=== PATIENT | female | born 1950 | race Caucasian/White ===

== ENCOUNTER → 2018-01-17 12:11 | Outpatient (CLI) | payer OTHER, SELFPAY ==
--- NOTE | 2018-01-17 | DI.MG.S_ITS ---
BILATERAL DIGITAL SCREENING MAMMOGRAM 3D/2D WITH CAD: 01/17/2018 CLINICAL: Routine screening. Family history of breast cancer. Comparison is made to exams dated: 12/23/2016 mammogram, 04/19/2014 mammogram, and 04/16/2013 mammogram - [facility]. The tissue of both breasts is predominantly fatty. Current study was also evaluated with a Computer Aided Detection (CAD) system. No significant masses, calcifications, or other findings are seen in either breast. There has been no significant interval change. IMPRESSION: NEGATIVE There is no mammographic evidence of malignancy. A 1 year screening mammogram is recommended. This exam was interpreted at Station ID: [id number]. NOTE: For mammograms, a report in lay terms will be sent to the patient. Approximately 15% of breast malignancies will not be visualized mammographically. In the management of a palpable breast mass, a negative mammogram must not discourage biopsy of a clinically suspicious lesion. Electronically Signed By: Rodrigo bettencourt/tim:01/17/2018 17:27:10 letter sent: Normal Exam ACR BI-RADS Category 1: Negative 3341F
== END ==
PROVIDERS: Family Provider Physician Assistant; PCP Physician Assistant; Visit Provider Physician Assistant
DX: Z12.31 Encounter for screening mammogram for malignant neoplasm of breast (principal); Z80.3 Family history of malignant neoplasm of breast
CPT/HCPCS: 77063; 77067

== ENCOUNTER → 2018-05-29 10:53 | Outpatient (CLI) | payer OTHER, SELFPAY ==
[2018-05-29 12:30] LABS: Hemoglobin A1C% w Est Avg Glu 6.8 % (4.0-6.0)
[2018-05-29 12:43] LABS: BUN Creatinine Ratio 28.6 (6-22); Blood Urea Nitrogen 20 mg/dL (7-17); Calcium 9.4 mg/dL (8.4-10.2); Carbon Dioxide 27 mmol/L (22-32); Chloride 103 mmol/L (98-107); Estimated Glomerular Filt Rate > 60.0 mL/min (>60); Glucose 156 mg/dL (80-110); HEMOLYSIS < 15 (0-50); Potassium 4.1 mmol/L (3.4-5.1); Sodium 144 mmol/L (137-145)
== END ==
PROVIDERS: PCP Physician Assistant; Visit Provider Physician Assistant
DX: E11.9 Type 2 diabetes mellitus without complications (principal); I10 Essential (primary) hypertension
CPT/HCPCS: 36415; 80048; 83036

== ENCOUNTER → 2018-12-06 11:43 | Outpatient (CLI) | payer OTHER, SELFPAY ==
[2018-12-06 12:48] LABS: Hemoglobin A1C% w Est Avg Glu 6.5 % (4.0-6.0)
[2018-12-06 12:54] LABS: Alanine Aminotransferase 41 IU/L (9-52); Albumin 4.1 g/dL (3.5-5.0); Albumin Globulin Ratio 1.3 (1.0-2.8); Alkaline Phosphatase 77 U/L (38-126); Aspartate Aminotransferase 32 IU/L (14-36); BUN Creatinine Ratio 28.3 (6-22); Bilirubin Total 0.6 mg/dL (0.2-1.3); Blood Urea Nitrogen 17 mg/dL (7-17); Calcium 9.2 mg/dL (8.4-10.2); Carbon Dioxide 26 mmol/L (22-32); Chloride 103 mmol/L (98-107); Cholesterol 184 mg/dL (140-199); Estimated Glomerular Filt Rate > 60.0 mL/min (>60); Globulin 3.2 g/dL (1.7-4.1); Glucose 146 mg/dL (80-110); HDL Cholesterol 44 mg/dL (40-60); HEMOLYSIS < 15 (0-50); LDL Cholesterol Calculated 96 mg/dL (<100); Potassium 4.4 mmol/L (3.4-5.1); Sodium 141 mmol/L (137-145); Total Protein 7.3 g/dL (6.3-8.2); Triglycerides 222 mg/dL (35-150)
== END ==
PROVIDERS: Family Provider Physician Assistant; PCP Physician Assistant; Visit Provider Physician Assistant
DX: E11.9 Type 2 diabetes mellitus without complications (principal); E78.2 Mixed hyperlipidemia; I10 Essential (primary) hypertension
CPT/HCPCS: 36415; 80053; 80061; 83036

== ENCOUNTER → 2019-01-19 11:07 | Outpatient (CLI) | payer OTHER, SELFPAY ==
--- NOTE | 2019-01-19 11:09 | DI.MG.S_ITS ---
BILATERAL DIGITAL SCREENING MAMMOGRAM 3D/2D WITH CAD: 01/19/2019 CLINICAL: Routine screening. Family history of breast cancer. Comparison is made to exams dated: 01/17/2018 mammogram, 12/23/2016 mammogram, and 04/19/2014 mammogram - [facility]. There are scattered fibroglandular elements in both breasts. Current study was also evaluated with a Computer Aided Detection (CAD) system. There are benign calcifications in both breasts. No significant masses, calcifications, or other findings are seen in either breast. There has been no significant interval change. IMPRESSION: There is no mammographic evidence of malignancy. A 1 year screening mammogram is recommended. This exam was interpreted at Station ID: [id number]. NOTE: For mammograms, a report in lay terms will be sent to the patient. Approximately 15% of breast malignancies will not be visualized mammographically. In the management of a palpable breast mass, a negative mammogram must not discourage biopsy of a clinically suspicious lesion. Electronically Signed By: Parvez alexandra/tim:01/19/2019 12:24:14 letter sent: Normal Exam ACR BI-RADS Category 2: Benign Finding(s) 3342F
== END ==
PROVIDERS: PCP Physician Assistant; Visit Provider Physician Assistant
DX: Z12.31 Encounter for screening mammogram for malignant neoplasm of breast (principal); Z80.3 Family history of malignant neoplasm of breast
CPT/HCPCS: 77063; 77067

== ENCOUNTER → 2019-07-09 09:24 | Outpatient (CLI) | payer MEDICARE, SELFPAY ==
[2019-07-09 10:20] LABS: Alanine Aminotransferase 48 IU/L (<35); Albumin 4.4 g/dL (3.5-5.0); Albumin Globulin Ratio 1.2 (1.0-2.8); Alkaline Phosphatase 83 U/L (38-126); Aspartate Aminotransferase 40 IU/L (14-36); BUN Creatinine Ratio 33.3 (6-22); Bilirubin Total 0.6 mg/dL (0.2-1.3); Blood Urea Nitrogen 20 mg/dL (7-17); Calcium 9.5 mg/dL (8.4-10.2); Carbon Dioxide 28 mmol/L (22-32); Chloride 103 mmol/L (98-107); Cholesterol 198 mg/dL (140-199); Estimated Glomerular Filt Rate > 60.0 mL/min (>60); Globulin 3.7 g/dL (1.7-4.1); Glucose 216 mg/dL (80-110); HDL Cholesterol 41 mg/dL (40-60); HEMOLYSIS < 15 (0-50); LDL Cholesterol Calculated 128 mg/dL (<100); Potassium 4.7 mmol/L (3.4-5.1); Sodium 140 mmol/L (137-145); Total Protein 8.1 g/dL (6.3-8.2); Triglycerides 144 mg/dL (35-150)
[2019-07-09 10:59] LABS: Creatinine Urine Random 144.8 mg/dL
[2019-07-09 11:03] LABS: Microalbumi Creatinin Ratio Ur 13.1 ug/mg CR (<30); Microalbumin Urine Random 1.9 mg/dL (0-1.6)
[2019-07-09 11:05] LABS: Vitamin B12 187 pg/mL (239-931)
[2019-07-09 11:11] LABS: Hemoglobin A1C% w Est Avg Glu 6.8 % (4.0-6.0)
[2019-07-09 11:15] LABS: Vitamin D 25 Hydroxy (D3) 28.1 ng/mL (30.0-100.0)
== END ==
PROVIDERS: PCP Physician Assistant; Visit Provider Physician Assistant
DX: E11.9 Type 2 diabetes mellitus without complications (principal); E66.01 Morbid (severe) obesity due to excess calories; E78.2 Mixed hyperlipidemia; I10 Essential (primary) hypertension; M81.0 Age-related osteoporosis without current pathological fracture; R26.81 Unsteadiness on feet; R53.83 Other fatigue
CPT/HCPCS: 36415; 80053; 80061; 82043; 82306; 82570; 82607; 83036

== ENCOUNTER → 2020-02-07 09:16 | Outpatient (CLI) | payer MEDICARE, SELFPAY ==
[2020-02-07 10:05] LABS: Hemoglobin A1C% w Est Avg Glu 7.6 % (4.0-6.0)
[2020-02-07 10:28] LABS: Alanine Aminotransferase 50 IU/L (<35); Albumin 4.2 g/dL (3.5-5.0); Albumin Globulin Ratio 1.2 (1.0-2.8); Alkaline Phosphatase 77 U/L (38-126); Aspartate Aminotransferase 45 IU/L (14-36); BUN Creatinine Ratio 18.7 (6-22); Bilirubin Total 0.8 mg/dL (0.2-1.3); Blood Urea Nitrogen 14 mg/dL (7-17); Calcium 9.4 mg/dL (8.4-10.2); Carbon Dioxide 25 mmol/L (22-32); Chloride 100 mmol/L (98-107); Cholesterol 186 mg/dL (140-199); Estimated Glomerular Filt Rate > 60.0 mL/min (>60); Globulin 3.4 g/dL (1.7-4.1); Glucose 183 mg/dL (80-110); HDL Cholesterol 46 mg/dL (40-60); HEMOLYSIS < 15 (0-50); LDL Cholesterol Calculated 104 mg/dL (<100); Potassium 4.5 mmol/L (3.4-5.1); Sodium 137 mmol/L (137-145); Total Protein 7.6 g/dL (6.3-8.2); Triglycerides 180 mg/dL (35-150)
[2020-02-07 10:45] LABS: Free T3, Triiodothyronine Free 3.23 pg/mL (2.77-5.27); Free T4, Direct Thyroxine 1.24 ng/dL (0.78-2.19)
[2020-02-07 10:59] LABS: Thyroid Stimulating Hormone 2.81 uIU/mL (0.47-4.68)
[2020-02-07 11:45] LABS: Microalbumin Urine Random 3.1 mg/dL (0-1.6)
[2020-02-07 11:47] LABS: Microalbumi Creatinin Ratio Ur 19.6 ug/mg CR (<30)
== END ==
PROVIDERS: PCP Nurse Practitioner; Referring Provider Nurse Practitioner; Visit Provider Nurse Practitioner
DX: E11.9 Type 2 diabetes mellitus without complications (principal); E78.2 Mixed hyperlipidemia; I10 Essential (primary) hypertension
CPT/HCPCS: 36415; 80053; 80061; 82043; 82570; 83036; 84439; 84443; 84481

== ENCOUNTER → 2020-02-19 16:22 | Outpatient (CLI) | payer MEDICARE, SELFPAY ==
--- NOTE | 2020-02-19 16:29 | DI.MG.S_ITS ---
Patient Name: DAYAN SOLO date: 1950 Sex: F Attending Physician: Memo Indications: Date: 02/19/2020 16:26 At the request of: ELISE ENG Procedure: MM screening mammo BI BILATERAL DIGITAL SCREENING MAMMOGRAM 3D/2D WITH CAD: 02/19/2020 CLINICAL: Routine screening. Family history of breast cancer. Comparison is made to exams dated: 01/19/2019 mammogram, 01/17/2018 mammogram, and 12/23/2016 mammogram - [facility]. The tissue of both breasts is predominantly fatty. Current study was also evaluated with a Computer Aided Detection (CAD) system. There are benign calcifications in both breasts. No significant masses, calcifications, or other findings are seen in either breast. There has been no significant interval change. IMPRESSION: BENIGN There is no mammographic evidence of malignancy. A 1 year screening mammogram is recommended. This exam was interpreted at Station ID: [id number]. NOTE: For mammograms, a report in lay terms will be sent to the patient. Approximately 15% of breast malignancies will not be visualized mammographically. In the management of a palpable breast mass, a negative mammogram must not discourage biopsy of a clinically suspicious lesion. Electronically Signed By: Gina house/tim:02/19/2020 16:40:39 letter sent: Normal Exam ACR BI-RADS Category 2: Benign Finding(s) 3342F
== END ==
PROVIDERS: PCP Nurse Practitioner; Referring Provider Nurse Practitioner; Visit Provider Nurse Practitioner
DX: Z12.31 Encounter for screening mammogram for malignant neoplasm of breast (principal); Z80.3 Family history of malignant neoplasm of breast
CPT/HCPCS: 77063; 77067

== ENCOUNTER → 2021-01-14 07:49 | Outpatient (CLI) | payer OTHER, SELFPAY ==
--- NOTE | 2021-01-14 07:50 | DI.US.S_ITS ---
PROCEDURE: US ABDOMEN COMPLETE INDICATIONS: PAIN TECHNIQUE: Real-time scanning was performed of the abdominal and retroperitoneal organs, with image documentation. COMPARISON: [facility], US, ABDOMEN LIMITED, 05/25/2016, 10:29. FINDINGS: Liver: Liver is normal in size, and is of diffusely increased echogenicity consistent with fatty change. Gallbladder: Unremarkable Biliary ducts: Intrahepatic bile ducts are non-dilated. Extrahepatic bile duct caliber measures 5.4 mm. Normal is 6-7 mm or less in diameter, or 10 mm or less post-cholecystectomy. Pancreas: Visualized portions of the pancreas are sonographically normal. Spleen: Spleen is normal in size and homogeneous in echotexture. Kidneys: Kidneys are normal in size and echotexture. Right kidney measures 9 10.3 cm long; left kidney measures 10.4 cm long. No hydronephrosis. There is a 5 mm nonobstructing inferior right renal stone. No solid masses. Aorta: Visualized aorta is normal in caliber at less than 3 cm. Iliacs: Proximal common iliac arteries are not visualized secondary to overlying bowel gas. IVC: Intrahepatic inferior vena cava is patent. Miscellaneous: No free abdominal fluid. IMPRESSION: 1. Diffuse hepatic steatosis. 2. No evidence of gallstone disease. 3. Nonobstructing right renal stone. Dictated by: Pablo Clark M.D. on 01/14/2021 at 11:31 Approved by: Pablo Clark M.D. on 01/14/2021 at 11:33
[2021-01-14 10:01] LABS: Hemoglobin A1C% w Est Avg Glu 7.5 % (4.0-6.0)
[2021-01-14 10:17] LABS: Alanine Aminotransferase 36 IU/L (<35); Albumin Globulin Ratio 1.3 (1.0-2.8); Alkaline Phosphatase 57 U/L (38-126); Aspartate Aminotransferase 32 IU/L (14-36); BUN Creatinine Ratio 30.6 (6-22); Bilirubin Total 0.5 mg/dL (0.2-1.3); Blood Urea Nitrogen 22 mg/dL (7-17); Calcium 9.7 mg/dL (8.4-10.2); Carbon Dioxide 27 mmol/L (22-32); Chloride 103 mmol/L (98-107); Cholesterol 175 mg/dL (140-199); Estimated Glomerular Filt Rate > 60.0 mL/min (>60); Globulin 3.2 g/dL (1.7-4.1); Glucose 183 mg/dL (80-110); HDL Cholesterol 46 mg/dL (40-60); HEMOLYSIS < 15 (0-50); LDL Cholesterol Calculated 101 mg/dL (<100); Potassium 4.8 mmol/L (3.4-5.1); Sodium 139 mmol/L (137-145); Total Protein 7.2 g/dL (6.3-8.2); Triglycerides 139 mg/dL (35-150)
[2021-01-14 10:29] LABS: Free T3, Triiodothyronine Free 3.12 pg/mL (2.77-5.27)
[2021-01-14 10:42] LABS: Thyroid Stimulating Hormone 2.17 uIU/mL (0.47-4.68)
[2021-01-14 11:03] LABS: Vitamin B12 473 pg/mL (239-931)
[2021-01-14 11:04] LABS: Vitamin D 25 Hydroxy (D3) 73.9 ng/mL (30.0-100.0)
[2021-01-14 11:25] LABS: Creatinine Urine Random 145.3 mg/dL
[2021-01-14 11:30] LABS: Microalbumi Creatinin Ratio Ur 9.6 ug/mg CR (<30); Microalbumin Urine Random 1.4 mg/dL (0-1.6)
== END ==
PROVIDERS: PCP Nurse Practitioner; Referring Provider Nurse Practitioner; Visit Provider Nurse Practitioner
DX: R10.811 Right upper quadrant abdominal tenderness (principal); R10.812 Left upper quadrant abdominal tenderness; E11.9 Type 2 diabetes mellitus without complications; R14.0 Abdominal distension (gaseous); I10 Essential (primary) hypertension; E53.8 Deficiency of other specified B group vitamins; E55.9 Vitamin D deficiency, unspecified; Z12.11 Encounter for screening for malignant neoplasm of colon; F32.9 Major depressive disorder, single episode, unspecified; E78.2 Mixed hyperlipidemia; Z79.899 Other long term (current) drug therapy; K76.0 Fatty (change of) liver, not elsewhere classified; N20.0 Calculus of kidney
CPT/HCPCS: 36415; 76700; 80053; 80061; 81327; 82043; 82306; 82570; 82607; 83036; 84439; 84443; 84481

== ENCOUNTER → 2021-02-10 12:38 | Outpatient (CLI) | payer OTHER, SELFPAY ==
--- NOTE | 2021-02-10 12:40 | DI.US.S_ITS ---
PROCEDURE: US CAROTID DOPPLER BI INDICATIONS: CALCIFICATIONS ON DENTAL XRAY TECHNIQUE: Color and pulse Doppler interrogation was performed of both carotid systems, with image documentation and velocity measurements. COMPARISON: None. FINDINGS: Stenosis calculations are based on SRU (Society of Radiologists in Ultrasound) criteria. Right side: Brachial blood pressure: 133/76 mm Hg. Common carotid artery peak systolic velocity: 128 cm/sec. Internal carotid artery peak systolic velocity: 82 cm/sec. Internal carotid artery end diastolic velocity: 25 cm/sec. External carotid artery peak systolic velocity: 93 cm/sec. ICA/CCA peak systolic ratio: 0.6 Bennett scale imaging description: Mild mixed plaque formation at the bifurcation and origin of the ICA with no hemodynamically significant stenosis identified. Percent internal carotid artery stenosis: Less than 50 percent on the basis of grayscale and Doppler findings. Vertebral artery: Flow direction is antegrade. Left side: Common carotid artery peak systolic velocity: 107 cm/sec. Internal carotid artery peak systolic velocity: 83 cm/sec. Internal carotid artery end diastolic velocity: 30 cm/sec. External carotid artery peak systolic velocity: 90 cm/sec. ICA/CCA peak systolic ratio: 0.8 . Bennett scale imaging description: Mild mixed plaque formation at the bifurcation and origin of the ICA with no hemodynamically significant stenosis. Percent internal carotid artery stenosis: Less than 50 percent on the basis of grayscale and Doppler findings. Vertebral artery: Flow direction is antegrade. IMPRESSION: No hemodynamically significant stenosis of the carotid systems. Dictated by: Dexter Cuellar M.D. on 02/10/2021 at 16:46 Approved by: Dexter Cuellar M.D. on 02/10/2021 at 16:48
== END ==
PROVIDERS: PCP Nurse Practitioner; Referring Provider Nurse Practitioner; Visit Provider Nurse Practitioner
DX: I65.23 Occlusion and stenosis of bilateral carotid arteries (principal)
CPT/HCPCS: 93880

== ENCOUNTER → 2021-04-13 15:09 | Outpatient (CLI) | payer OTHER, SELFPAY | PROVIDERS: PCP Nurse Practitioner; Visit Provider Nurse Practitioner | DX: L02.215 Cutaneous abscess of perineum (principal) | CPT/HCPCS: 87070; 87205 ==

== ENCOUNTER → 2021-05-04 11:37 | Outpatient (CLI) | payer OTHER, SELFPAY ==
[2021-05-04 12:40] LABS: Hemoglobin A1C% w Est Avg Glu 5.7 % (4.0-6.0)
[2021-05-04 12:45] LABS: Alanine Aminotransferase 32 IU/L (<35); Albumin 4.4 g/dL (3.5-5.0); Albumin Globulin Ratio 1.4 (1.0-2.8); Alkaline Phosphatase 54 U/L (38-126); Aspartate Aminotransferase 37 IU/L (14-36); BUN Creatinine Ratio 26.9 (6-22); Bilirubin Total 0.7 mg/dL (0.2-1.3); Blood Urea Nitrogen 21 mg/dL (7-17); Calcium 9.5 mg/dL (8.4-10.2); Carbon Dioxide 26 mmol/L (22-32); Chloride 102 mmol/L (98-107); Cholesterol 195 mg/dL (140-199); Estimated Glomerular Filt Rate > 60.0 mL/min (>60); Globulin 3.2 g/dL (1.7-4.1); Glucose 139 mg/dL (80-110); HDL Cholesterol 44 mg/dL (40-60); HEMOLYSIS < 15 (0-50); LDL Cholesterol Calculated 123 mg/dL (<100); Potassium 4.7 mmol/L (3.4-5.1); Sodium 140 mmol/L (137-145); Total Protein 7.6 g/dL (6.3-8.2); Triglycerides 141 mg/dL (35-150)
== END ==
PROVIDERS: PCP Nurse Practitioner; Referring Provider Nurse Practitioner; Visit Provider Nurse Practitioner
DX: E11.9 Type 2 diabetes mellitus without complications (principal); E78.2 Mixed hyperlipidemia; I10 Essential (primary) hypertension; Z79.899 Other long term (current) drug therapy
CPT/HCPCS: 36415; 80053; 80061; 83036

== ENCOUNTER → 2021-05-06 07:39 | Outpatient (CLI) | payer OTHER, SELFPAY ==
--- NOTE | 2021-05-06 07:40 | DI.US.S_ITS ---
PROCEDURE: US EXTREMITY NONVASC LOWER LT INDICATIONS: PALPABLE LUMP MEDIAL LEFT BUTTOCK TECHNIQUE: Real-time scanning was performed of the palpable area in the left gluteal region , with image documentation. COMPARISON: None. FINDINGS: There is an irregular subdermal fluid collection with heterogeneous internal echoes measuring approximately 1.1 x 0.8 x 0.8 cm. The collection extends through the dermal layer, probably to the skin surface. Adjacent to this collection on the deep aspect, there is a prominent vessel. IMPRESSION: 1. Subdermal circumscribed complex fluid collection, likely a phlegmon or abscess. Dictated by: Leta Rincon M.D. on 05/06/2021 at 8:49 Approved by: Leta Rincon M.D. on 05/06/2021 at 8:53
== END ==
PROVIDERS: PCP Nurse Practitioner; Referring Provider Nurse Practitioner; Visit Provider Nurse Practitioner
DX: L02.215 Cutaneous abscess of perineum (principal)
CPT/HCPCS: 76882

== ENCOUNTER → 2021-08-17 13:50 | Outpatient (CLI) | payer OTHER, SELFPAY ==
[2021-08-17 15:21] LABS: Hemoglobin A1C% w Est Avg Glu 5.9 % (4.0-6.0)
[2021-08-17 15:40] LABS: Alanine Aminotransferase 27 IU/L (<35); Albumin 4.6 g/dL (3.5-5.0); Albumin Globulin Ratio 1.3 (1.0-2.8); Alkaline Phosphatase 61 U/L (38-126); Aspartate Aminotransferase 30 IU/L (14-36); BUN Creatinine Ratio 21.3 (6-22); Bilirubin Total 0.6 mg/dL (0.2-1.3); Blood Urea Nitrogen 16 mg/dL (7-17); Calcium 9.3 mg/dL (8.4-10.2); Carbon Dioxide 26 mmol/L (22-32); Chloride 105 mmol/L (98-107); Cholesterol 230 mg/dL (140-199); Estimated Glomerular Filt Rate > 60.0 mL/min (>60); Globulin 3.6 g/dL (1.7-4.1); Glucose 102 mg/dL (80-110); HDL Cholesterol 45 mg/dL (40-60); HEMOLYSIS < 15 (0-50); LDL Cholesterol Calculated 150 mg/dL (<100); Potassium 4.1 mmol/L (3.4-5.1); Sodium 140 mmol/L (137-145); Total Protein 8.2 g/dL (6.3-8.2); Triglycerides 173 mg/dL (35-150)
[2021-08-17 17:15] LABS: Hep C Virus Ab w/Reflex Quant NEGATIVE s/c (NEGATIVE)
== END ==
PROVIDERS: PCP Nurse Practitioner; Referring Provider Nurse Practitioner; Visit Provider Nurse Practitioner
DX: E11.9 Type 2 diabetes mellitus without complications (principal); I10 Essential (primary) hypertension; K76.0 Fatty (change of) liver, not elsewhere classified; Z11.59 Encounter for screening for other viral diseases; Z91.89 Other specified personal risk factors, not elsewhere classified; E11.69 Type 2 diabetes mellitus with other specified complication; E78.2 Mixed hyperlipidemia
CPT/HCPCS: 36415; 80053; 80061; 83036; 86803

== ENCOUNTER → 2021-08-27 13:01 | Outpatient (CLI) | payer OTHER, SELFPAY ==
--- NOTE | 2021-08-27 13:02 | DI.MG.S_ITS ---
BILATERAL DIGITAL SCREENING MAMMOGRAM 3D/2D WITH CAD: 08/27/2021 Comparison is made to exams dated: 02/19/2020 mammogram, 01/19/2019 mammogram, 01/17/2018 mammogram, and 12/23/2016 mammogram - [facility]. The tissue of both breasts is predominantly fatty. Current study was also evaluated with a Computer Aided Detection (CAD) system. There are benign calcifications in both breasts. No significant masses, calcifications, or other findings are seen in either breast. There has been no significant interval change. IMPRESSION: BENIGN There is no mammographic evidence of malignancy. A 1 year screening mammogram is recommended. This exam was interpreted at Station ID: [id number]. NOTE: For mammograms, a report in lay terms will be sent to the patient. Approximately 15% of breast malignancies will not be visualized mammographically. In the management of a palpable breast mass, a negative mammogram must not discourage biopsy of a clinically suspicious lesion. Electronically Signed By: Michael hernandez/tim:08/27/2021 14:02:50 letter sent: Normal Exam ACR BI-RADS Category 2: Benign Finding(s) 3342F
== END ==
PROVIDERS: PCP Nurse Practitioner; Referring Provider Nurse Practitioner; Visit Provider Nurse Practitioner
DX: Z12.31 Encounter for screening mammogram for malignant neoplasm of breast (principal)
CPT/HCPCS: 77063; 77067

== ENCOUNTER → 2021-11-18 07:40 | Outpatient (CLI) | payer OTHER, SELFPAY ==
[2021-11-18 08:28] LABS: Hemoglobin A1C% w Est Avg Glu 5.8 % (4.0-6.0)
[2021-11-18 08:43] LABS: Alanine Aminotransferase 21 IU/L (<35); Albumin 4.2 g/dL (3.5-5.0); Albumin Globulin Ratio 1.2 (1.0-2.8); Alkaline Phosphatase 63 U/L (38-126); Aspartate Aminotransferase 23 IU/L (14-36); BUN Creatinine Ratio 28.2 (6-22); Bilirubin Total 0.3 mg/dL (0.2-1.3); Blood Urea Nitrogen 22 mg/dL (7-17); Calcium 9.5 mg/dL (8.4-10.2); Carbon Dioxide 29 mmol/L (22-32); Chloride 104 mmol/L (98-107); Cholesterol 201 mg/dL (140-199); Estimated Glomerular Filt Rate > 60 mL/min (>60); Globulin 3.4 g/dL (1.7-4.1); Glucose 125 mg/dL (80-110); HDL Cholesterol 39 mg/dL (40-60); HEMOLYSIS < 15 (0-50); LDL Cholesterol Calculated 125 mg/dL (<100); Potassium 4.7 mmol/L (3.4-5.1); Sodium 140 mmol/L (137-145); Total Protein 7.6 g/dL (6.3-8.2); Triglycerides 183 mg/dL (35-150)
== END ==
PROVIDERS: PCP Nurse Practitioner; Referring Provider Nurse Practitioner; Visit Provider Nurse Practitioner
DX: E11.69 Type 2 diabetes mellitus with other specified complication (principal); E78.2 Mixed hyperlipidemia; I10 Essential (primary) hypertension
CPT/HCPCS: 36415; 80053; 80061; 83036

== ENCOUNTER 2022-02-09 04:10 | Emergency (ER) | payer OTHER, SELFPAY ==
[2022-02-09] VITALS (12 sets, daily range): BP systolic 133–165; BP diastolic 61–74; PULSE 51–71; RESP 14–28; O2SAT 92–96
--- NOTE | 2022-02-09 04:21 | ED_ITS ---
HPI - General Adult General Chief complaint: Chest Pain Stated complaint: chest pain Time Seen by Provider: 02/09/22 04:20 History of Present Illness HPI narrative: 71-year-old woman with history of diabetes, hypertension who was resting in bed this evening when she had the acute onset of burning epigastric, central chest pain radiating in a bandlike way around her upper abdomen to the right scapula and right shoulder. She tried some Gas-X and found that that was not helpful. She had an episode of vomiting with some mild diaphoresis immediately before the vomiting. She does not note that the vomiting alleviated any of the pain. She does have a history of a bleeding ulcer in describes this pain is significantly different. She does not describe shortness of breath but does describe the benefits in using deep limb oz type breathing techniques in controlling the overall pain. She states that heat and Tylenol have not been helpful in alleviating the pain. She has that recently she has been feeling significantly better. She was diagnosed with COVID approximately month ago and over the last week is finally back to her usual activity and energy levels. She still has a mild persistent cough. She describes no recent fevers, palpitations, headaches. She has not had abdominal pain diarrhea or constipation. Related Data Home Medications Medication Instructions Recorded Confirmed acetaminophen 500 mg tablet See Rx Instructions PO ONCE PRN 12/11/18 05/07/21 (Tylenol Extra Strength) Previous Rx's Medication Instructions Recorded One Touch Glucometer #1 ea 02/07/20 blood sugar diagnostic (OneTouch #100 ea 02/18/20 Verio test strips) dulaglutide 0.75 mg/0.5 mL 0.75 mg (0.5 mL) SUBCUT QWEEK #2 mL 05/06/21 [facility] felodipine 5 mg tablet,extended See Rx Instructions .Route 05/06/21 release 24 hr .COMPLEX #90 tabs lansoprazole 30 mg capsule,delayed See Rx Instructions .Route 05/06/21 release .COMPLEX #90 caps losartan 50 mg tablet See Rx Instructions .Route 05/06/21 .COMPLEX #180 tabs metformin 500 mg tablet,extended See Rx Instructions .Route 05/06/21 release 24 hr .COMPLEX #360 tabs sertraline 50 mg tablet 75 mg PO DAILY #135 tabs 06/22/21 omega 1-fxp-crw-fish oil 1,000 mg 1 cap PO BID #180 caps 08/19/21 (120 mg-180 mg) capsule (Fish Oil) pravastatin 20 mg tablet 20 mg .Route .COMPLEX #90 tabs 08/19/21 niacin 750 mg tablet,extended 750 mg PO BEDTIME #90 tabs 11/25/21 release 24 hr (Niaspan) nirmatrelvir 300 mg (150 mg x See Rx Instructions PO .COMPLEX 01/22/22 2)-ritonavir 100 mg tablet (EUA) #30 tabs Allergies Allergy/AdvReac Type Severity Reaction Status Date / Time perflutren [From DEFINITY] Allergy Severe Chest Verified 05/07/21 14:42 tightness, difficulty breathing. latex [LATEX] Allergy Mild RASH AND Verified 05/07/21 14:42 HIVES monosodium glutamate AdvReac Severe MIGRAINE Verified 05/07/21 14:42 [MONOSODIUM GLUTAMATE] lisinopril AdvReac Intermediate Hair loss Verified 05/07/21 14:42 Review of Systems Review of Systems Narrative: Remainder of complete review of systems is otherwise unremarkable except for that included in the HPI. Patient History Medical History (Updated 02/09/22 @ 06:46 by Divine Mello MD) Calcification of both carotid arteries Cobalamin deficiency Hepatic steatosis Mixed hyperlipidemia due to type 2 diabetes mellitus Other petroleum terminal plant operator (current) drug therapy Perineal abscess Surgical History Status post hernia repair Family History Mother Hypertension Diabetes mellitus Grandmother Breast cancer Family/Other Gallstones Family/Other Diabetes mellitus Family/Other Breast cancer Social History marital status: details: mariano Soriano number of children: 5 household members: spouse lives independently: Yes caregiver/support person: No occupational status: employed Smoking Status: Never smoker second hand exposure: No alcohol intake: current substance use type: does not use Smoking Status: Never smoker Exam Initial Vital Signs Initial Vital Signs: Vital Signs Pulse Rate 59 L 02/09/22 04:31 Respiratory Rate 18 02/09/22 04:31 Blood Pressure 151/65 H 02/09/22 04:31 Pulse Oximetry 96 02/09/22 04:31 Oxygen Delivery Method 02/09/22 04:31 General: Healthy appearing, in mild distress secondary to pain but Able to give a complete and coherent history. Well-nourished well-developed HEENT: Moist mucous membranes, normal sclera with reactive pupils, Neck: No JVD, supple Respiratory: Lungs are clear to auscultation, no wheezing no rales no rhonchi. Full and symmetrical air movement Cardiac: Regular rate and rhythm no murmurs no bruits Abdomen: Soft, mild epigastric tenderness, right upper quadrant tenderness and tenderness along the posterior right lung richard and inferior scapula on the right, good bowel tones, no flank pain Skin: Warm and dry, no rashes Neurologic: Grossly neurologically intact with no obvious asymmetries or abnormalities Extremities: No trauma, well perfused Psych: Cooperative, appropriate insight and affect Course Orders Ordered: ED Orders 02/09/22 EKG-12 Lead Routine 02/09/22 04:27 Complete Blood Count AUTO DIFF Stat Comprehensive Metabolic Panel Stat Lipase Stat Magnesium Stat Troponin I Stat 02/09/22 04:35 XR chest 1V Stat 02/09/22 05:31 US abdomen limited Stat Hydromorphone HCl (Hydromorphone 0.5 Mg Inj) 0.5 mg IV Q15MIN PRN PRN Reason: Pain, Last Admin: 02/09/22 05:39 Dose: 0.5 mg Vital Signs Vital signs: Vital Signs - 8 hr 02/09/22 04:31 02/09/22 04:44 02/09/22 05:00 Pulse Rate 59 L 71 56 L Respiratory Rate 18 23 Blood Pressure 151/65 H Pulse Oximetry 96 96 95 Oxygen Delivery Method Room Air 02/09/22 05:03 02/09/22 05:03 Pulse Rate 54 L Respiratory Rate 18 Blood Pressure 146/67 H Pulse Oximetry 94 Oxygen Delivery Method Medical Decision Making Lab Data Result diagrams: 02/09/22 04:27 02/09/22 04:27 Labs: Lab Results 02/09/22 02/09/22 02/09/22 Range/Units 04:27 04:27 04:27 WBC 9.3 (4.5-11.0) X10^3/uL RBC 4.29 (4.0-5.2) X10^6/uL Hgb 12.6 (12.0-16.0) g/dL Hct 36.8 (36-46) % MCV 85.9 (80-100) fL MCH 29.5 (26-34) PG MCHC 34.3 (30-36) % RDW 14.1 (11.6-14.8) % Plt Count 161 (150-400) X10^3/uL Neut % (Auto) 71.7 (50-75) % Lymph % (Auto) 20.3 L (25-40) % Gaines % (Auto) 6.2 (3-14) % Eos % (Auto) 1.0 L (2-4) % Baso % (Auto) 0.8 (0-2) % Neut # (Auto) 6700 (4097-8681) /uL Lymph # (Auto) 1900 (8247-2445) /uL Gaines # (Auto) 600 (0-900) /uL Eos # (Auto) 100 (0-450) /uL Baso # (Auto) 100 (0-100) /uL Sodium 139 (137-145) mmol/L Potassium 5.2 H (3.4-5.1) mmol/L Chloride 103 (98-107) mmol/L Carbon Dioxide 26 (22-32) mmol/L BUN 20 H (7-17) mg/dL Creatinine 0.78 (0.52-1.04) mg/dL Estimated GFR > 60 (>60) mL/min BUN/Creatinine Ratio 25.6 H (6-22) Glucose 158 H (80-110) mg/dL Calcium 9.1 (8.4-10.2) mg/dL Magnesium 1.5 L (1.6-2.3) mg/dL Total Bilirubin 0.3 (0.2-1.3) mg/dL AST 25 (14-36) IU/L ALT 24 (<35) IU/L Alkaline Phosphatase 58 (38-126) U/L Troponin I < 0.012 (0.01-0.034) ng/mL Total Protein 7.8 (6.3-8.2) g/dL Albumin 4.3 (3.5-5.0) g/dL Globulin 3.5 (1.7-4.1) g/dL Albumin/Globulin Ratio 1.2 (1.0-2.8) Lipase 174 (23-300) U/L Imaging Data Chest x-ray: Radiologist's Impression: No acute cardiopulmonary abnormality is identified Carli Price MD US - abdomen: Radiologist's Impression: preliminary report: Hydropic gallbladder without obvious stones sludge, thickened gallbladder wall, pericholecystic fluid or dilated ducts. ECG Data Interpretation: Sinus rhythm at a rate of 55 Low voltage for baseline No acute ischemia MDM Narrative Medical decision making narrative: 71-year-old woman who presents with 3 hours of acute central chest mid epigas tric bandlike pain radiating to the right scapular shoulder. Chest x-ray is unremarkable as is lab work including chemistries. No evidence of elevated LFTs bilirubin. No elevated troponin and normal lipase. Ultrasound of the right upper quadrant with concern for acute cholelithiasis is ordered. Pain is treated with Dilaudid and patient is stable Ultrasound shows hydropic gallbladder without acute cholecystitis and no obvious gallstones appreciated. At this time patient does not have a surgical abdomen, there is no evidence of acute coronary syndrome, upper GI bleeding, significant complications from recent COVID infection. No evidence of ascending cholangitis, pneumothorax, do not suspect dissection. Will discharge her home with a prepack of Percocet to use for acute pain if needed. Will ask her to follow-up with her primary care physician she may be a very appropriate candidate for a HIDA scan to confirm a diagnosis of acalculous cholecystitis. Clearly reviewed signs and symptoms of worsening infection and recent return to the emergency department. She is safe for home discharge at this time Discharge Plan Departure Patient Disposition: Home Clinical Impression: Abdominal pain, right upper quadrant Instructions: DI for Abdominal Pain-Adult, DI for Cholecystitis Activity Restrictions/Additional Instructions: Thank you for coming in today There is no evidence of acute surgical emergency, heart attack, collapsed lung, pneumonia or obvious COVID complications. You do not appear to have any bleeding from your stomach or acute pancreatitis. The ultrasound that we did showed an enlarged gallbladder that is not obviously full of gallstones or acutely infected (acute cholecystitis). At this time I am going to send you home with of very small amount of Percocet to use for severe pain should this pain recur. I suspect that the final diagnosis is going to end up being gallbladder dysfunction however further workup is certainly going to be needed. Please schedule an appointment with your primary care doctor let them know that your in the emergency department. If you continue to have this type of pain your doctor may want to schedule a HIDA study to look more closely at gallbladder function. If you have recurrent pain, fevers, persistent vomiting or new findings that would be very appropriate to return to the emergency department for further eval uation. Prescriptions: No Action (DME) blood sugar diagnostic [OneTouch Verio test strips] Strip See Rx Instructions .ROUTE .MEDSUPPLY Qty: 100 2RF Rx Instructions: One Touch Ultra Blue Test Strips- use to check blood sugar once daily sertraline 50 mg tablet 75 mg PO DAILY Qty: 135 3RF Rx Instructions: Take 1.5 tabs daily (75mg) for depression and anxiety. nirmatrelvir-ritonavir 150 mg x 2- 100 mg tablet See Rx Instructions PO .COMPLEX Qty: 30 0RF Rx Instructions: take TWO 150 mg tablets of nirmatrelvir with ONE 100 mg tablet of ritonavir twice daily for 5 days PO acetaminophen [Tylenol Extra Strength] 500 mg tablet See Rx Instructions PO ONCE PRN Label Comments: 1-2 tablets PO ONCE PRN. Rx Instructions: 1-2 tablets PO ONCE PRN. (DME) One Touch Glucometer Qty: 1 0RF Rx Instructions: As directed Trulicity 0.75 mg/0.5 mL pen injector 0.75 mg SUBCUT QWEEK Qty: 2 11RF Rx Instructions: Self inject 0.5mL SQ weekly felodipine 5 mg tablet extended release 24 hr See Rx Instructions .ROUTE .COMPLEX Qty: 90 3RF Dose Instruction: take 1 tablet by mouth once daily Rx Instructions: take 1 tablet by mouth once daily lansoprazole 30 mg capsule,delayed release(DR/EC) See Rx Instructions .ROUTE .COMPLEX Qty: 90 3RF Dose Instruction: take 1 capsule by mouth once daily Rx Instructions: take 1 capsule by mouth once daily losartan 50 mg tablet See Rx Instructions .ROUTE .COMPLEX Qty: 180 3RF Dose Instruction: take 1 tablet by mouth twice a day Rx Instructions: take 1 tablet by mouth twice a day metformin 500 mg tablet extended release 24 hr See Rx Instructions .ROUTE .COMPLEX Qty: 360 3RF Dose Instruction: take 2 tablets by mouth EVERY MORNING AND EVENING Rx Instructions: take 2 tablets by mouth EVERY MORNING AND EVENING pravastatin 20 mg tablet 20 mg .ROUTE .COMPLEX Qty: 90 3RF Rx Instructions: 1 tab every other day with daily Niacin omega 6-fdf-nai-fish oil [Fish Oil] 1,000 mg (120 mg-180 mg) capsule 1 cap PO BID Qty: 180 0RF niacin [Niaspan Extended-Release] 750 mg tablet extended release 24 hr 750 mg PO BEDTIME Qty: 90 3RF Referrals: Radha Hampton ARNP [Primary Care Provider] -
--- NOTE | 2022-02-09 04:35 | DI.RAD.S_ITS ---
PROCEDURE: XR CHEST 1V INDICATIONS: chest pain TECHNIQUE: One view of the chest was acquired. COMPARISON: [facility], CHEST 1 VIEW, 05/31/2016, 15:13. [facility], CHEST 2 VIEW, 04/28/2016, 16:31. FINDINGS: Surgical changes and devices: None. Lungs and pleura: Lung volumes are low. Lungs are clear. No pleural effusions or pneumothorax. Mediastinum: Mediastinal contours appear normal. Heart size is mildly enlarged as before. Bones and chest wall: No suspicious bony lesions. Overlying soft tissues appear unremarkable. IMPRESSION: No acute cardiopulmonary findings. These findings are concordant with the overnight interpretation. Dictated by: Gina Hull M.D. on 02/09/2022 at 8:32 Approved by: Gina Hull M.D. on 02/09/2022 at 8:33
[2022-02-09 04:45] LABS: Add Manual Diff / Slide Review NO; Basophils Absolute Auto 100 /uL (0-100); Basophils Percent Auto 0.8 % (0-2); Eosinophils Absolute Auto 100 /uL (0-450); Hematocrit 36.8 % (36-46); Hemoglobin 12.6 g/dL (12.0-16.0); Lymphocytes Absolute Auto 1900 /uL (1100-4500); Lymphocytes Percent Auto 20.3 % (25-40); Mean Corpuscular HGB Conc 34.3 % (30-36); Mean Corpuscular Hemoglobin 29.5 PG (26-34); Mean Corpuscular Volume 85.9 fL (80-100); Monocytes Absolute Auto 600 /uL (0-900); Monocytes Percent Auto 6.2 % (3-14); Neutrophils Absolute Auto 6700 /uL (1500-7000); Neutrophils Percent Auto 71.7 % (50-75); Platelet Count 161 X10^3/uL (150-400); Red Blood Cell Count 4.29 X10^6/uL (4.0-5.2); Red Cell Distribution Width 14.1 % (11.6-14.8); White Blood Cell Count 9.3 X10^3/uL (4.5-11.0)
[2022-02-09 04:49] LABS: Alanine Aminotransferase 24 IU/L (<35); Albumin 4.3 g/dL (3.5-5.0); Albumin Globulin Ratio 1.2 (1.0-2.8); Alkaline Phosphatase 58 U/L (38-126); Aspartate Aminotransferase 25 IU/L (14-36); BUN Creatinine Ratio 25.6 (6-22); Bilirubin Total 0.3 mg/dL (0.2-1.3); Blood Urea Nitrogen 20 mg/dL (7-17); Calcium 9.1 mg/dL (8.4-10.2); Carbon Dioxide 26 mmol/L (22-32); Chloride 103 mmol/L (98-107); Estimated Glomerular Filt Rate > 60 mL/min (>60); Globulin 3.5 g/dL (1.7-4.1); Glucose 158 mg/dL (80-110); HEMOLYSIS 16 (0-50); Potassium 5.2 mmol/L (3.4-5.1); Sodium 139 mmol/L (137-145); Total Protein 7.8 g/dL (6.3-8.2)
[2022-02-09 04:50] LABS: Lipase 174 U/L (23-300); Magnesium 1.5 mg/dL (1.6-2.3)
[2022-02-09 05:01] LABS: Troponin I < 0.012 ng/mL (0.01-0.034)
--- NOTE | 2022-02-09 05:31 | DI.US.S_ITS ---
PROCEDURE: US ABDOMEN LIMITED INDICATIONS: RUQ abdominal pain TECHNIQUE: Real-time scanning was performed of the abdominal and retroperitoneal organs, with image documentation. COMPARISON: [facility], US, US ABDOMEN COMPLETE, 01/14/2021, 8:27. [facility], US, ABDOMEN LIMITED, 05/25/2016, 10:29. FINDINGS: Liver: Liver is normal in size and homogeneous in echotexture. Gallbladder: The gallbladder wall measures 1.8 mm in diameter. The gallbladder is moderately distended. No stones, sludge, pericholecystic fluid, or sonographic Gold sign. Biliary ducts: Intrahepatic bile ducts are non-dilated. Extrahepatic bile duct caliber measures 5.7 mm. Normal is 6-7 mm or less in diameter, or 10 mm or less post-cholecystectomy. Pancreas: Visualized portions of the pancreas are sonographically normal. IMPRESSION: 1. Moderate distention of the gallbladder. No cholelithiasis or discrete findings to suggest choledocholithiasis or acute cholecystitis. Dictated by: Gina Hull M.D. on 02/09/2022 at 8:33 Approved by: Gina Hull M.D. on 02/09/2022 at 8:34
[2022-02-09] MEDS: HYDROMORPHONE 0.5 MG INJ IV (05:39)
== END 2022-02-09 07:29 | disposition home or self-care (01) ==
PROVIDERS: Emergency Provider Emergency Medicine; PCP Nurse Practitioner
DX: R10.11 Right upper quadrant pain (principal)
CPT/HCPCS: 71045; 76705; 80053; 83690; 83735; 84484; 85025; 93005; 96374; 99283; 99284; J1170

== ENCOUNTER → 2022-02-20 10:25 | Outpatient (CLI) | payer OTHER, SELFPAY ==
[2022-02-20 11:29] LABS: Alanine Aminotransferase 18 IU/L (<35); Albumin 4.2 g/dL (3.5-5.0); Albumin Globulin Ratio 1.1 (1.0-2.8); Alkaline Phosphatase 60 U/L (38-126); Aspartate Aminotransferase 22 IU/L (14-36); BUN Creatinine Ratio 28.6 (6-22); Bilirubin Total 0.4 mg/dL (0.2-1.3); Blood Urea Nitrogen 22 mg/dL (7-17); Calcium 9.3 mg/dL (8.4-10.2); Carbon Dioxide 23 mmol/L (22-32); Chloride 107 mmol/L (98-107); Cholesterol 209 mg/dL (140-199); Estimated Glomerular Filt Rate > 60 mL/min (>60); Globulin 3.9 g/dL (1.7-4.1); Glucose 123 mg/dL (80-110); HDL Cholesterol 40 mg/dL (40-60); HEMOLYSIS < 15 (0-50); LDL Cholesterol Calculated 143 mg/dL (<100); Magnesium 1.7 mg/dL (1.6-2.3); Potassium 4.4 mmol/L (3.4-5.1); Sodium 140 mmol/L (137-145); Total Protein 8.1 g/dL (6.3-8.2); Triglycerides 129 mg/dL (35-150)
[2022-02-20 11:46] LABS: Free T3, Triiodothyronine Free 2.91 pg/mL (2.77-5.27); Free T4, Direct Thyroxine 1.21 ng/dL (0.78-2.19)
[2022-02-20 11:59] LABS: Thyroid Stimulating Hormone 2.19 uIU/mL (0.47-4.68)
[2022-02-20 12:11] LABS: Hemoglobin A1C% w Est Avg Glu 5.8 % (4.0-6.0)
== END ==
PROVIDERS: PCP Nurse Practitioner; Referring Provider Nurse Practitioner; Visit Provider Nurse Practitioner
DX: E11.69 Type 2 diabetes mellitus with other specified complication (principal); E11.9 Type 2 diabetes mellitus without complications; E78.2 Mixed hyperlipidemia; F32.9 Major depressive disorder, single episode, unspecified; K76.0 Fatty (change of) liver, not elsewhere classified; Z79.899 Other long term (current) drug therapy; E83.42 Hypomagnesemia
CPT/HCPCS: 36415; 80053; 80061; 83036; 83735; 84439; 84443; 84481

== ENCOUNTER → 2022-02-23 09:07 | Outpatient (CLI) | payer OTHER, SELFPAY ==
[2022-02-23 11:09] LABS: Creatinine Urine Random 161.7 mg/dL
[2022-02-23 11:10] LABS: Microalbumi Creatinin Ratio Ur 5.5 ug/mg CR (<30); Microalbumin Urine Random 0.9 mg/dL (0-1.6)
== END ==
PROVIDERS: PCP Nurse Practitioner; Referring Provider Nurse Practitioner; Visit Provider Nurse Practitioner
DX: E11.69 Type 2 diabetes mellitus with other specified complication (principal); E11.9 Type 2 diabetes mellitus without complications; E78.2 Mixed hyperlipidemia; F32.9 Major depressive disorder, single episode, unspecified; K76.0 Fatty (change of) liver, not elsewhere classified; Z79.899 Other long term (current) drug therapy
CPT/HCPCS: 82043; 82570

== ENCOUNTER → 2022-07-26 12:18 | Outpatient (CLI) | payer OTHER, SELFPAY ==
[2022-07-26 13:21] LABS: Alanine Aminotransferase 27 IU/L (<35); Albumin 4.3 g/dL (3.5-5.0); Albumin Globulin Ratio 1.3 (1.0-2.8); Alkaline Phosphatase 58 U/L (38-126); Aspartate Aminotransferase 27 IU/L (14-36); BUN Creatinine Ratio 30.7 (6-22); Bilirubin Total 0.6 mg/dL (0.2-1.3); Blood Urea Nitrogen 23 mg/dL (7-17); Calcium 9.6 mg/dL (8.4-10.2); Carbon Dioxide 29 mmol/L (22-32); Chloride 100 mmol/L (98-107); Cholesterol 201 mg/dL (140-199); Estimated Glomerular Filt Rate > 60 mL/min (>60); Globulin 3.3 g/dL (1.7-4.1); Glucose 105 mg/dL (80-110); HDL Cholesterol 51 mg/dL (40-60); HEMOLYSIS < 15 (0-50); LDL Cholesterol Calculated 122 mg/dL (<100); Magnesium 1.7 mg/dL (1.6-2.3); Potassium 4.6 mmol/L (3.4-5.1); Sodium 139 mmol/L (137-145); Total Protein 7.6 g/dL (6.3-8.2); Triglycerides 138 mg/dL (35-150)
[2022-07-26 14:29] LABS: Hemoglobin A1C% w Est Avg Glu 5.7 % (4.0-6.0)
== END ==
PROVIDERS: PCP Nurse Practitioner; Referring Provider Nurse Practitioner; Visit Provider Nurse Practitioner
DX: E11.69 Type 2 diabetes mellitus with other specified complication (principal); E78.2 Mixed hyperlipidemia; E83.42 Hypomagnesemia; K76.0 Fatty (change of) liver, not elsewhere classified; Z79.899 Other long term (current) drug therapy
CPT/HCPCS: 36415; 80053; 80061; 83036; 83735

== ENCOUNTER → 2022-11-03 10:13 | Outpatient (CLI) | payer OTHER, SELFPAY ==
--- NOTE | 2022-11-03 10:14 | DI.MG.S_ITS ---
BILATERAL DIGITAL SCREENING MAMMOGRAM 3D/2D WITH CAD: 11/03/2022 CLINICAL: Routine screening. Family history of breast cancer. Comparison is made to exams dated: 08/27/2021 mammogram, 02/19/2020 mammogram, 01/19/2019 mammogram, and 01/17/2018 mammogram - [facility]. Both breasts are almost entirely fatty (category a/<25% glandular tissue). Current study was also evaluated with a Computer Aided Detection (CAD) system. There are benign calcifications in both breasts. No significant masses, calcifications, or other findings are seen in either breast. There has been no significant interval change. IMPRESSION: BENIGN There is no mammographic evidence of malignancy. A 1 year screening mammogram is recommended. Based on the Tyrer Cuzick model (a risk assessment model) the patient's lifetime risk is 2.3% and her 10 year risk is 1.4%. According to the ACR, ACS, and NCCN guidelines, an annual breast MRI exam along with mammogram is recommended if the patient's lifetime risk is 20% or greater. This exam was interpreted at Station ID: [id number]. NOTE: For mammograms, a report in lay terms will be sent to the patient. Approximately 15% of breast malignancies will not be visualized mammographically. In the management of a palpable breast mass, a negative mammogram must not discourage biopsy of a clinically suspicious lesion. Electronically Signed By: Michael hernandez/tim:11/03/2022 16:52:27 letter sent: Normal Exam ACR BI-RADS Category 2: Benign Finding(s) 3342F
--- NOTE | 2022-11-03 10:44 | DI.DEXA.S_ITS ---
Bone Density Report Name: DAYAN SOLO Age: 71 Sex: Female Ethnicity: White Date of : 1950 Indication: postmenopausal; screening for osteoporosis; Referring Provider: ELISE ENG Study: Bone densitometry was performed. Exam Date: November 03, 2022 Accession number: [id number] Bone Density: Region BMD T-score Z-score Classification AP Spine(L1, L2, L3) 1.060 0.4 2.5 Normal Femoral Neck (Left) 0.730 -1.1 0.8 Osteopenia Total Hip (Left) 0.911 -0.3 1.3 Normal Femoral Neck (Right) 0.769 -0.7 1.1 Normal Total Hip (Right) 0.946 0.0 1.6 Normal Total Hip Mean 0.929 -0.2 1.5 Normal World Health Organization criteria for BMD impression classify patients as: Normal (T-score at or above -1.0), Osteopenia (T-score between -1.0 and -2.5), or Osteoporosis (T-score at or below -2.5). 10-year Fracture Risk(1): Major Osteoporotic Fracture 8.3% Hip Fracture 0.9% Reported Risk Factors: [place] (), Neck BMD=0.730, BMI=37.9 (1) FRAX(R) Version 3.08. Fracture probability calculated for an untreated patient. Fracture probability may be lower if the patient has received treatment. Previous Exams: -- Region Exam Age BMD T-score BMD Change BMD Change Date g/cm2 vs Baseline vs Previous -- AP Spine (L1-L3) 11/03/2022 71 1.060 0.4 0.019 (1.8%)# 0.019 (1.8%)# 12/23/2016 65 1.041 0.2 Total Hip(Left) 11/03/2022 71 0.911 -0.3 -0.058 (-6.0%)# -0.058 (-6.0%)# 12/23/2016 65 0.970 0.2 Total Hip(Right) 11/03/2022 71 0.946 0.0 -0.064 (-6.4%)# -0.064 (-6.4%)# 12/23/2016 65 1.010 0.6 -- *Denotes significance at 95% confidence level, LSC for AP Spine = 0.022 g/cm2, LSC for Total Hip = 0.027 g/cm2 # Denotes dissimilar scan types or analysis methods Impression: The patient has low bone mass, based on the Left Femoral Neck T-score. The patient has an estimated ten-year risk of hip fracture of 0.9% and an estimated ten-year risk of major fracture of 8.3%, based on the WHO FRAX algorithm. No significant bone loss was observed. Discussion: BONE DENSITY IS LOW AT ONE OR MORE SKELETAL SITES. This patient's lowest T-score is low at one or more skeletal sites. It meets the World Health Organization's (WHO) criteria for ?low bone mass? (T-score between -1.0 and -2.5). The patient's 10-year risk of fracture as calculated by FRAX is less than the threshold where pharmacological therapy is recommended by the National Osteoporosis Foundation (NOF). However, all treatment decisions require clinical judgment and consideration of individual patient factors, including patient preferences, comorbidities, previous drug use, risk factors not captured in the FRAX model (e.g., frailty, falls, vitamin D deficiency, increased bone turnover, interval significant decline in bone density) and possible under or overestimation of fracture risk by FRAX. The patient should follow a healthful lifestyle (good nutrition with adequate calcium and vitamin D, and appropriate weight-bearing exercise). Follow-Up: Consider repeating this study in 2 to 3 years to reassess this patient's status, or sooner if there is some new clinical indication. Reported by: TIMOTHY MAURER M.D. on 11/03/2022 10:59:00 AM.
== END ==
PROVIDERS: PCP Nurse Practitioner; Referring Provider Nurse Practitioner; Visit Provider Nurse Practitioner
DX: Z12.31 Encounter for screening mammogram for malignant neoplasm of breast (principal); M85.852 Other specified disorders of bone density and structure, left thigh; Z80.3 Family history of malignant neoplasm of breast; Z13.820 Encounter for screening for osteoporosis; Z78.0 Asymptomatic menopausal state
CPT/HCPCS: 77063; 77067; 77080

== ENCOUNTER → 2022-12-28 12:14 | Outpatient (CLI) | payer OTHER, SELFPAY ==
[2022-12-28 12:56] LABS: Add Manual Diff / Slide Review NO; Basophils Absolute Auto 0 /uL (0-100); Basophils Percent Auto 0.1 % (0-2); Eosinophils Absolute Auto 100 /uL (0-450); Eosinophils Percent Auto 1.4 % (2-4); Hematocrit 39.5 % (36-46); Hemoglobin 13.4 g/dL (12.0-16.0); Lymphocytes Absolute Auto 1800 /uL (1100-4500); Lymphocytes Percent Auto 27.8 % (25-40); Mean Corpuscular Hemoglobin 29.4 PG (26-34); Mean Corpuscular Volume 86.5 fL (80-100); Monocytes Absolute Auto 400 /uL (0-900); Neutrophils Absolute Auto 4000 /uL (1500-7000); Neutrophils Percent Auto 63.7 % (50-75); Platelet Count 162 X10^3/uL (150-400); Red Blood Cell Count 4.57 X10^6/uL (4.0-5.2); Red Cell Distribution Width 13.8 % (11.6-14.8); White Blood Cell Count 6.4 X10^3/uL (4.5-11.0)
[2022-12-28 13:13] LABS: Alanine Aminotransferase 28 IU/L (<35); Albumin 4.4 g/dL (3.5-5.0); Albumin Globulin Ratio 1.3 (1.0-2.8); Alkaline Phosphatase 63 U/L (38-126); Aspartate Aminotransferase 30 IU/L (14-36); BUN Creatinine Ratio 27.3 (6-22); Bilirubin Total 0.4 mg/dL (0.2-1.3); Blood Urea Nitrogen 21 mg/dL (7-17); Calcium 9.1 mg/dL (8.4-10.2); Carbon Dioxide 29 mmol/L (22-32); Chloride 102 mmol/L (98-107); Cholesterol 187 mg/dL (140-199); Estimated Glomerular Filt Rate > 60 mL/min (>60); Globulin 3.4 g/dL (1.7-4.1); Glucose 117 mg/dL (80-110); HDL Cholesterol 44 mg/dL (40-60); HEMOLYSIS < 15 (0-50); LDL Cholesterol Calculated 119 mg/dL (<100); Potassium 4.5 mmol/L (3.4-5.1); Sodium 139 mmol/L (137-145); Total Protein 7.8 g/dL (6.3-8.2); Triglycerides 118 mg/dL (35-150)
[2022-12-28 13:37] LABS: Free T3, Triiodothyronine Free 3.66 pg/mL (2.77-5.27)
[2022-12-28 13:51] LABS: Thyroid Stimulating Hormone 1.42 uIU/mL (0.47-4.68)
[2022-12-28 17:42] LABS: Creatinine Urine Random 118.5 mg/dL
[2022-12-28 17:44] LABS: Microalbumi Creatinin Ratio Ur 10.1 ug/mg CR (<30); Microalbumin Urine Random 1.2 mg/dL (0-1.6)
[2022-12-29 05:30] LABS: Labcorp Hemoglobin (Hb) A1c 5.9 % (4.8-5.6)
== END ==
PROVIDERS: PCP Nurse Practitioner; Referring Provider Nurse Practitioner; Visit Provider Nurse Practitioner
DX: E11.9 Type 2 diabetes mellitus without complications; R53.83 Other fatigue; Z87.19 Personal history of other diseases of the digestive system; E11.69 Type 2 diabetes mellitus with other specified complication; E78.2 Mixed hyperlipidemia; Z79.899 Other long term (current) drug therapy
CPT/HCPCS: 36415; 80053; 80061; 82043; 82570; 83036; 84439; 84443; 84481; 85025

== ENCOUNTER 2023-02-04 12:15 | Day surgery (SDC) | payer OTHER, SELFPAY ==
[2023-02-04 13:30] VITALS: BP 148/71; PULSE 59; RESP 17; TEMP 36.9; O2SAT 93; BMI 37.8
[2023-02-04] MEDS: LACTATED RINGERS 1,000 ML 150 ML IV (13:53)
--- NOTE | 2023-02-04 14:32 | P.HP_ITS ---
History of Present Illness History of Present Illness Date Patient Seen: 02/04/23 Time Patient Seen: 14:32 Chief complaint: [facility] [place] Narrative: Ms. Anguiano is a 72-year-old female who presents today for a screening colonoscopy. Says her last colonoscopy was well over 13 years ago here at [facility]. As far she can recall there were no polyps seen. She is no family history of colon cancer and no concerning symptoms although she does complain that she has hemorrhoids that are severe and painful that are problematic for her. Denies bleeding from these hemorrhoids and has not ever tried a fiber supplement. Upon review of her records in 04/2021 she had a cyst and by Dr. Ramires and in 2015 she had an incisional hernia repair with Dr. Olivarez. There was a complication at this time with asystole and CPR administered in the operating room; she was admitted to the ICU. She recently has been having regular visits with her primary care physician Radha saldana and there was no indication of ongoing cardiac risk factors that have not been addressed or are not under active treatment at this time. [facility] Medical History Calcification of both carotid arteries Cobalamin deficiency Hepatic steatosis Mixed hyperlipidemia due to type 2 diabetes mellitus Osteopenia Other supervisor intermediates (current) drug therapy Perineal abscess Surgical History Status post hernia repair Family History Mother Hypertension Diabetes mellitus Grandmother Breast cancer Family/Other Gallstones Family/Other Diabetes mellitus Family/Other Breast cancer Social History marital status: details: mariano Soriano number of children: 5 household members: spouse lives independently: Yes caregiver/support person: No occupational status: employed Smoking Status: Never smoker second hand exposure: No alcohol intake: current substance use type: does not use Meds Home Medications and Allergies Home Medications Medication Instructions Recorded Confirmed Type acetaminophen 500 mg tablet See Rx Instructions PO ONCE 12/11/18 02/04/23 History (Tylenol Extra Strength) One Touch Glucometer #1 ea 02/07/20 12/30/22 Rx omega 0-ynf-kgg-fish oil 1,000 mg 1 cap PO BID #180 caps 08/19/21 02/04/23 Rx (120 mg-180 mg) capsule (Fish Oil) felodipine 5 mg tablet,extended See Rx Instructions .Route 02/24/22 02/04/23 Rx release 24 hr .COMPLEX #90 tabs lansoprazole 30 mg capsule,delayed See Rx Instructions .Route 02/24/22 02/04/23 Rx release .COMPLEX #90 caps losartan 50 mg tablet See Rx Instructions .Route 02/24/22 12/30/22 Rx .COMPLEX #180 tabs metformin 500 mg tablet,extended See Rx Instructions .Route 02/24/22 02/04/23 Rx release 24 hr .COMPLEX #360 tabs dulaglutide 0.75 mg/0.5 mL 0.75 mg (0.5 mL) SUBCUT QWEEK 3 07/14/22 02/04/23 Rx subcutaneous pen injector months #6.5 mL (Trulicity) sertraline 50 mg tablet 100 mg PO DAILY #60 tabs 09/16/22 02/04/23 Rx Glucose Test Strips for the One #100 ea 12/30/22 12/30/22 Rx Touch Ultra cholecalciferol (vitamin D3) 50 50 mcg PO DAILY 12/30/22 02/04/23 History mcg (2,000 unit) capsule pravastatin 40 mg tablet 40 mg PO DAILY #90 tabs 12/30/22 02/04/23 Rx Allergies Allergy/AdvReac Type Severity Reaction Status Date / Time perflutren [From DEFINITY] Allergy Severe Chest Verified 02/04/23 13:20 tightness, difficulty breathing. latex [LATEX] Allergy Mild RASH AND Verified 02/04/23 13:20 HIVES monosodium glutamate AdvReac Severe MIGRAINE Verified 02/04/23 13:20 [MONOSODIUM GLUTAMATE] lisinopril AdvReac Intermediate Hair loss Verified 02/04/23 13:20 Exam Vital Signs (past 8 hours): - 02/04/23 13:30 Temperature 98.4 F Pulse Rate 59 L Respiratory Rate 17 Blood Pressure 148/71 H Pulse Oximetry 93 Oxygen Delivery Method Room Air Oxygen Delivery Method Room Air Const General: cooperative, healthy appearing and comfortable Nutritional Appearance: obese (BMI 37) [facility] Head: normal to inspection Eyes General: appearance normal, both eyes and all related structures Resp Effort & Inspection: normal respiratory effort and able to speak in complete sentences Cardio Pulses: radial pulses present GI Palpation: soft and No tender Assessment & Plan Assessment and plan (1) Colon cancer screening: Status: Acute Assessment & Plan narrative: Presents today for screening colonoscopy I discussed the risks benefits and alternatives including but not limited to perforation of the colon and an incomplete exam she fully understands these risks and would like to proceed.
[2023-02-04 15:11] VITALS: BP 113/62; PULSE 61; RESP 14; TEMP 36.1; O2SAT 94
[2023-02-04 15:16] VITALS: BP 137/76; PULSE 60; RESP 14; O2SAT 97
--- NOTE | 2023-02-04 15:20 | P.OP.COLON_ITS ---
Operative Date/Time/Diagnoses Date of procedure: 02/04/23 Time of procedure: 15:20 Pre-op diagnosis: Colon cancer screening, external hemorrhoids Post-op diagnosis: same Procedure & Clinicians Study performed: Colonoscopy Indications: Colon cancer screening, no family history colon cancer, no personal history of polyps, large external hemorrhoids Surgeon: Mariely Huggins Procedure Notes Procedure in detail: Patient was taken to the endoscopy suite and placed in a left lateral decubitus position. A time-out was performed. With the help of anesthesiologist conscious sedation was induced and monitored throughout the case. A digital rectal exam was performed and there were no masses or strictures. There were large circumferential external hemorrhoids with skin tags associated. The colonoscope was introduced into the anal canal and advanced through to the cecum. A photograph of the appendiceal orifice was obtained. There were scattered sigmoid diverticula. The bowel prep was good [place] bowel prep score of 2. The scope was then withdrawn for a total of 10 minutes and no polyps were seen. The scope was then retroflexed and a photograph of the internal hemorrhoidal piles was obtained. There was 1 that appeared somewhat prominent but overall the internal hemorrhoids appeared relatively small. The large external hemorrhoids were photographed. Patient tolerated the procedure well and went in good condition to the postoperative care unit. Findings: other findings (Large external hemorrhoids) Specimen(s): none sent Complications: none Impression: Scattered diverticula, and large external hemorrhoids, no polyps Post-procedure Recommendations: Colonoscopy in 10 years Plan for aftercare: Unless there is a change in your family history or you develop any concerning symptoms you can have a follow-up colonoscopy for the purpose of screening in 10 years. There are scattered diverticula and external hemorrhoids both of which are reasons why I strongly recommend fiber supplementation. In addition I would like to discuss with you possible treatment options for your external hemorrhoids if you would like to pursue that. I will ask my office to call you on Tuesday but please do not hesitate to contact us with any further questions or concerns at the office of [facility].
[2023-02-04 15:21] VITALS: BP 140/71; PULSE 55; RESP 13; O2SAT 97
[2023-02-04 15:30] VITALS: BP 150/81; PULSE 50; RESP 12; O2SAT 98
[2023-02-04 15:45] VITALS: BP 150/79; PULSE 55; RESP 12; TEMP 36.8; O2SAT 98
== END 2023-02-04 15:45 | disposition home or self-care (01) ==
PROVIDERS: PCP Nurse Practitioner; Referring Provider Surgery; Visit Provider Surgery
PROC: 0DJD8ZZ Inspection of Lower Intestinal Tract, Via Natural or Artificial Opening Endoscopic (ICD-10-PCS; CPT 45378; principal; 2023-02-04 12:45)
DX: Z12.11 Encounter for screening for malignant neoplasm of colon (principal); K57.30 Diverticulosis of large intestine without perforation or abscess without bleeding; K64.8 Other hemorrhoids
CPT/HCPCS: G0121; J2704

== ENCOUNTER → 2023-08-12 11:26 | Outpatient (CLI) | payer OTHER, SELFPAY ==
[2023-08-12 12:40] LABS: Hemoglobin A1C% w Est Avg Glu 5.9 % (4.0-6.0)
[2023-08-12 12:48] LABS: Alanine Aminotransferase 23 IU/L (<35); Albumin 4.2 g/dL (3.5-5.0); Albumin Globulin Ratio 1.2 (1.0-2.8); Alkaline Phosphatase 71 U/L (38-126); Aspartate Aminotransferase 23 IU/L (14-36); BUN Creatinine Ratio 30.6 (6-22); Bilirubin Total 0.5 mg/dL (0.2-1.3); Blood Urea Nitrogen 22 mg/dL (7-17); Calcium 9.1 mg/dL (8.4-10.2); Carbon Dioxide 25 mmol/L (22-32); Chloride 102 mmol/L (98-107); Cholesterol 181 mg/dL (140-199); Estimated Glomerular Filt Rate > 60 mL/min (>60); Globulin 3.5 g/dL (1.7-4.1); Glucose 127 mg/dL (80-110); HDL Cholesterol 41 mg/dL (40-60); HEMOLYSIS < 15 (0-50); LDL Cholesterol Calculated 110 mg/dL (<100); Potassium 4.6 mmol/L (3.4-5.1); Sodium 138 mmol/L (137-145); Total Protein 7.7 g/dL (6.3-8.2); Triglycerides 149 mg/dL (35-150)
== END ==
PROVIDERS: PCP Nurse Practitioner; Referring Provider Nurse Practitioner; Visit Provider Nurse Practitioner
DX: E11.69 Type 2 diabetes mellitus with other specified complication (principal); E78.2 Mixed hyperlipidemia; E11.9 Type 2 diabetes mellitus without complications; K76.0 Fatty (change of) liver, not elsewhere classified; I10 Essential (primary) hypertension; Z79.899 Other long term (current) drug therapy
CPT/HCPCS: 36415; 80053; 80061; 83036

== ENCOUNTER → 2024-02-03 14:03 | Outpatient (CLI) | payer OTHER, SELFPAY ==
--- NOTE | 2024-02-03 14:04 | DI.MG.S_ITS ---
BILATERAL DIGITAL SCREENING MAMMOGRAM 3D/2D WITH CAD: 02/03/2024 CLINICAL: Routine screening. Family history of breast cancer. Comparison is made to exams dated: 11/03/2022 mammogram, 08/27/2021 mammogram, and 02/19/2020 mammogram - [facility]. Both breasts are almost entirely fatty (category a/<25% glandular tissue). Current study was also evaluated with a Computer Aided Detection (CAD) system. There are benign calcifications in both breasts. No significant masses, calcifications, or other findings are seen in either breast. There has been no significant interval change. IMPRESSION: BENIGN There is no mammographic evidence of malignancy. A 1 year screening mammogram is recommended. Based on the Tyrer Cuzick model (a risk assessment model) the patient's lifetime risk is 2.0% and her 10 year risk is 1.5%. According to the ACR, ACS, and NCCN guidelines, an annual breast MRI exam along with mammogram is recommended if the patient's lifetime risk is 20% or greater. This exam was interpreted at Station ID: [id number]. NOTE: For mammograms, a report in lay terms will be sent to the patient. Approximately 15% of breast malignancies will not be visualized mammographically. In the management of a palpable breast mass, a negative mammogram must not discourage biopsy of a clinically suspicious lesion. Electronically Signed By: Anton nolasco/tim:02/03/2024 16:24:03 letter sent: Normal Exam ACR BI-RADS Category 2: Benign Finding(s) 3342F
== END ==
LOC: MAMMO 14:04
PROVIDERS: PCP Nurse Practitioner; Referring Provider Nurse Practitioner; Visit Provider Nurse Practitioner
DX: Z12.31 Encounter for screening mammogram for malignant neoplasm of breast (principal); Z80.3 Family history of malignant neoplasm of breast; R92.313 Mammographic fatty tissue density, bilateral breasts
CPT/HCPCS: 77063; 77067

== ENCOUNTER → 2024-02-10 10:51 | Outpatient (CLI) | payer OTHER, SELFPAY ==
[2024-02-10 11:42] LABS: Alanine Aminotransferase 26 IU/L (<35); Albumin 4.4 g/dL (3.5-5.0); Albumin Globulin Ratio 1.3 (1.0-2.8); Alkaline Phosphatase 69 U/L (38-126); Aspartate Aminotransferase 26 IU/L (14-36); BUN Creatinine Ratio 36.6 (6-22); Bilirubin Total 0.5 mg/dL (0.2-1.3); Blood Urea Nitrogen 30 mg/dL (7-17); Calcium 9.4 mg/dL (8.4-10.2); Carbon Dioxide 23 mmol/L (22-32); Chloride 104 mmol/L (98-107); Cholesterol 193 mg/dL (140-199); Estimated Glomerular Filt Rate > 60 mL/min (>60); Globulin 3.3 g/dL (1.7-4.1); Glucose 132 mg/dL (80-110); HDL Cholesterol 46 mg/dL (40-60); HEMOLYSIS < 15 (0-50); LDL Cholesterol Calculated 121 mg/dL (<100); Potassium 4.6 mmol/L (3.4-5.1); Sodium 138 mmol/L (137-145); Total Protein 7.7 g/dL (6.3-8.2); Triglycerides 128 mg/dL (35-150)
[2024-02-10 11:59] LABS: Hemoglobin A1C% w Est Avg Glu 5.5 % (4.0-6.0)
[2024-02-10 14:03] LABS: Creatinine Urine Random 103.11 mg/dL
[2024-02-10 14:09] LABS: Microalbumin Urine Random 1.6 mg/dL (0-1.6)
== END ==
LOC: LAB 10:51
PROVIDERS: PCP Nurse Practitioner; Referring Provider Nurse Practitioner; Visit Provider Nurse Practitioner
DX: E11.69 Type 2 diabetes mellitus with other specified complication (principal); E78.2 Mixed hyperlipidemia; K76.0 Fatty (change of) liver, not elsewhere classified; Z79.899 Other long term (current) drug therapy; I10 Essential (primary) hypertension; E11.9 Type 2 diabetes mellitus without complications
CPT/HCPCS: 36415; 80053; 80061; 82043; 82570; 83036

== ENCOUNTER → 2024-02-18 12:39 | Outpatient (CLI) | payer OTHER, SELFPAY ==
[2024-02-24 00:36] LABS: Latex allergy <0.10 kU/L (Class 0)
== END ==
PROVIDERS: PCP Nurse Practitioner; Referring Provider Nurse Practitioner; Visit Provider Nurse Practitioner
DX: R21 Rash and other nonspecific skin eruption (principal)
CPT/HCPCS: 36415; 86003

== ENCOUNTER → 2024-05-28 12:09 | Outpatient (CLI) | payer OTHER, SELFPAY ==
[2024-05-28 14:02] LABS: Hemoglobin A1C% w Est Avg Glu 5.7 % (4.0-6.0)
[2024-05-28 20:36] LABS: Alanine Aminotransferase 29 IU/L (<35); Albumin 4.2 g/dL (3.5-5.0); Albumin Globulin Ratio 1.6 (1.0-2.8); Alkaline Phosphatase 78 U/L (38-126); Aspartate Aminotransferase 31 IU/L (14-36); BUN Creatinine Ratio 29.7 (6-22); Bilirubin Total 0.5 mg/dL (0.2-1.3); Blood Urea Nitrogen 27 mg/dL (7-17); Calcium 9.3 mg/dL (8.4-10.2); Carbon Dioxide 24 mmol/L (22-32); Chloride 105 mmol/L (98-107); Cholesterol 226 mg/dL (140-199); Estimated Glomerular Filt Rate > 60 mL/min (>60); Globulin 2.6 g/dL (1.7-4.1); Glucose 125 mg/dL (80-110); HDL Cholesterol 46 mg/dL (40-60); HEMOLYSIS < 15 (0-50); LDL Cholesterol Calculated 150 mg/dL (<100); Potassium 4.7 mmol/L (3.4-5.1); Sodium 139 mmol/L (137-145); Total Protein 6.8 g/dL (6.3-8.2); Triglycerides 151 mg/dL (35-150)
== END ==
LOC: LAB 12:10
PROVIDERS: PCP Nurse Practitioner; Referring Provider Nurse Practitioner; Visit Provider Nurse Practitioner
DX: E11.69 Type 2 diabetes mellitus with other specified complication (principal); E78.2 Mixed hyperlipidemia; I10 Essential (primary) hypertension
CPT/HCPCS: 36415; 80053; 80061; 83036

== ENCOUNTER → 2024-10-24 09:14 | Outpatient (CLI) | payer MEDICARE, SELFPAY ==
--- NOTE | 2024-10-24 09:17 | DI.US.S_ITS ---
PROCEDURE: US CAROTID DOPPLER BI INDICATIONS: ISCHEMIC HEART DISEASE/BILAT CAROTID ARTERY DISEAS TECHNIQUE: Color and pulse Doppler interrogation was performed of both carotid systems, with image documentation and velocity measurements. COMPARISON: [facility], , US CAROTID DOPPLER BI, 02/10/2021, 13:00. FINDINGS: Stenosis calculations are based on SRU (Society of Radiologists in Ultrasound) criteria. Right side: Brachial blood pressure: 145/68 mm Hg. Common carotid artery peak systolic velocity: 74 cm/sec. Internal carotid artery peak systolic velocity: 96 cm/sec. Internal carotid artery end diastolic velocity: 21 cm/sec. External carotid artery peak systolic velocity: 113 cm/sec. ICA/CCA peak systolic ratio: 1.3 . Bennett scale imaging description: Atherosclerotic plaque Percent internal carotid artery stenosis: Less than 50 . Vertebral artery: Flow direction is antegrade. Left side: Brachial blood pressure: 127/65 mm Hg. Common carotid artery peak systolic velocity: 56 cm/sec. Internal carotid artery peak systolic velocity: 84 cm/sec. Internal carotid artery end diastolic velocity: 26 cm/sec. External carotid artery peak systolic velocity: 86 cm/sec. ICA/CCA peak systolic ratio: 1.5 . Bennett scale imaging description: Atherosclerotic plaque Percent internal carotid artery stenosis: Less than 50 . Vertebral artery: Flow direction is antegrade. IMPRESSION: 1. In the right carotid artery, there is less than 50 stenosis based on peak systolic velocity criteria. 2. In the left carotid artery, there is less than 50 stenosis based on peak systolic velocity criteria. 3. Antegrade vertebral arteries. Approved by: Topher Quinn M.D. on 10/24/2024 at 11:35
--- NOTE | 2024-10-24 09:17 | DI.ECHO.S_ITS ---
[place] +---------+ Hospital : : [id number] : : [place] : : [id number] : : Phone: [phone] Echocardiogram Report + + :Name: DAYAN SOLO Study Date: 10/24/2024 Height: 66 in : :Hospital ReadingLocation: Weight: 230 lb : : Gender: Female BSA: 2.1 m2 : :: 1950 Age: 73 yrs BP: 141/84 mmHg: :Reason For Study: ISCHEMIC HEART DISEASE : :Ordering Physician: JENNIFER BEE Performed By: Annalise French : :Referring: JENNIFER BEE : + + Interpretation Summary 1. The left ventricular contractility is normal. Estimated ejection fraction of greater than 55% with no segmental wall motion abnormalities. No LVH. No diastolic dysfunction. 2. The right ventricular contractility is normal. 3. All cardiac chambers are of normal size. 4. Mild pulmonic insufficiency. 5. No obvious intracardiac shunts. 6. No obvious intracardiac masses nor thrombi. 7. No hemodynamically significant pericardial effusion. 8. Low right-sided filling pressures. Conclusion: Normal biventricular systolic function with no significant valvular abnormalities. When compared with previous echocardiogram, no significant changes have occurred Procedure: A two-dimensional transthoracic echocardiogram with color flow and Doppler was performed. The study quality was technically adequate. Comparison is made with the echocardiogram of 05/31/2016. PRIOR ECHO 05/31/2016: Patient deveoped lower back pain, chest pain, and shortness of breath shortly after administration of Definity. Rapid response was called and patient was sent to ER. DO NOT USE DEFINITY ON THIS PATIENT AGAIN.. The patient was in sinus bradycardia with heart rates between 50-56 bpm during the exam. Left Ventricle: The left ventricle is normal in size and wall thickness. The ejection fraction is estimated to be 55-60%. Right Ventricle: The right ventricle is normal in size and function. Atria: The left atrial size is normal. The right atrium is normal in size. There is no Doppler evidence for an interatrial shunt. Mitral Valve: The mitral valve leaflets appear borderline thickened, but open well. The mitral valve leaflets appear to open well. There is trace mitral regurgitation. Aortic Valve: The aortic valve is trileaflet. The aortic valve opens well. There is no aortic valve stenosis. No aortic regurgitation is present. Tricuspid Valve: The tricuspid valve leaflets are thin and pliable. There is trace tricuspid regurgitation. Pulmonary artery pressures cannot be estimated because of the lack of a measurable TR jet velocity. Pulmonic Valve: The pulmonic valve is not well seen, but is grossly normal. There is mild pulmonic regurgitation. Great Vessels: The aortic root is normal size. The dimensions of the ascending aorta are normal. The IVC is of normal diameter and collapses greater than 50% with a sniff. This suggests a low right atrial pressure of 3 mm Hg. Pericardium/ Pleura There is no pericardial effusion. There is no pleural effusion. MMode/2D Measurements & Calculations LVIDd: 4.6 cm LVOT diam: 2.0 cm LVIDs: 3.3 cm Ao root diam: 3.3 cm FS: 26.7 % asc Aorta Diam: 3.6 cm EPSS: 0.92 cm Ao Arch Diam (Prox Trans): 3.1 cm IVSd: 0.80 cm LVPWd: 0.99 cm LV talley. diameter/BSA (cm/m^2): 2.2 LV sys. diameter/BSA (cm/m^2): 1.6 LA A2 area: 16.2 cm2 RA long axis: 4.9 cm LA A4 area: 18.9 cm2 RA area: 16.6 cm2 LA length (vol): 5.0 cm RA vol: 47.5 ml LA vol: 51.5 ml RA : 22.4 ml/m2 LA vol index: 24.3 ml/m2 IVC diam: 1.8 cm RVD1 (basal): 3.7 cm RVD2 (mid): 3.0 cm TAPSE: 2.2 cm Doppler Measurements & Calculations Ao V2 max: 138.7 cm/sec LVOT Max Geo: 100.8 cm/sec Ao V2 mean: 92.7 cm/sec LV V1 max P.1 mmHg Ao max P.7 mmHg LV V1 VTI: 25.8 cm Ao mean P.9 mmHg TADEO(I,D): 2.3 cm2 Ao V2 VTI: 36.5 cm TADEO(V,D): 2.3 cm2 sev ratio: 0.71 TADEO indexed to BSA (cm^2/m^2): 1.1 MV E max geo: 78.2 cm/sec PA V2 max: 93.6 cm/sec MV A max geo: 81.6 cm/sec PA V2 mean: 63.1 cm/sec MV E/A: 0.96 PA mean P.8 mmHg Med Peak E' Geo: 5.5 cm/sec E/E' med: 14.3 Lat Peak E' Geo: 6.0 cm/sec E/E' lat: 13.0 E/e' average: 13.6 MV dec time: 0.23 sec SV(JUDAH): 82.6 ml Reading Physician:MAGGI
== END ==
LOC: US 09:16
PROVIDERS: PCP Nurse Practitioner Family; Referring Provider Internal Medicine; Visit Provider Internal Medicine
DX: Z13.6 Encounter for screening for cardiovascular disorders (principal); I37.1 Nonrheumatic pulmonary valve insufficiency; I65.23 Occlusion and stenosis of bilateral carotid arteries; I77.9 Disorder of arteries and arterioles, unspecified
CPT/HCPCS: 93306; 93880

== ENCOUNTER → 2024-10-25 12:34 | Outpatient (CLI) | payer MEDICARE, SELFPAY ==
--- NOTE | 2024-10-25 | DI.NM.S_ITS ---
PROCEDURE: NM EXERCISE TREADMILL NON NUC COMPARISON: None. INDICATIONS: ISCHEMIC HEART DISEASE/BILAT CAROTID ARTERY DISEAS FINDINGS: The patient reached 98% of maximum predicted heart rate. Borderline hypertensive response to exercise (resting BP 148/90mmHg, max BP 202/100mmHg). 7.0METS, TITO -7%. No diagnostic ST changes and no ectopy during exercise or recovery. Left sided non-radiating chest pain at the start of recovery that quickly resolved. IMPRESSION: Low risk, probably normal treadmill non-nuclear stress test from inducible ischema standpoint. Above average exercise tolerance (TITO -7%). Borderline hypertensive response to exercise (resting BP 148/90mmHg, max BP 202/100mmHg). Left sided non-radiating chest pain at the start of recovery that quickly resolved. Correlate chest pain clinically. Dictated by: Josefina Mckenna MD on 10/25/2024 at 17:05 Approved by: Josefina Mckenna MD on 10/25/2024 at 17:09
== END ==
LOC: DI 12:36
PROVIDERS: PCP Nurse Practitioner Family; Referring Provider Nurse Practitioner Family; Visit Provider Internal Medicine
DX: Z13.6 Encounter for screening for cardiovascular disorders
CPT/HCPCS: 93016; 93017; 93018

== ENCOUNTER → 2024-11-17 11:57 | Outpatient (CLI) | payer MEDICARE, SELFPAY ==
[2024-11-17 12:22] LABS: Add Manual Diff / Slide Review NO; Basophils Absolute Auto 0 /uL (0-100); Basophils Percent Auto 0.6 % (0-2); Eosinophils Absolute Auto 100 /uL (0-450); Eosinophils Percent Auto 2.2 % (2-4); Hematocrit 39.2 % (36-46); Hemoglobin 13.7 g/dL (12.0-16.0); Lymphocytes Absolute Auto 1600 /uL (1100-4500); Lymphocytes Percent Auto 25.8 % (25-40); Mean Corpuscular Hemoglobin 30.3 PG (26-34); Mean Corpuscular Volume 86.7 fL (80-100); Monocytes Absolute Auto 400 /uL (0-900); Neutrophils Absolute Auto 3900 /uL (1500-7000); Neutrophils Percent Auto 65.4 % (50-75); Platelet Count 152 X10^3/uL (150-400); Red Blood Cell Count 4.52 X10^6/uL (4.0-5.2); Red Cell Distribution Width 13.3 % (11.6-14.8)
[2024-11-17 12:35] LABS: Hemoglobin A1C% w Est Avg Glu 5.5 % (4.0-6.0)
[2024-11-17 13:00] LABS: BUN Creatinine Ratio 24.7 (6-22); Blood Urea Nitrogen 20 mg/dL (7-17); Calcium 9.3 mg/dL (8.4-10.2); Carbon Dioxide 26 mmol/L (22-32); Chloride 105 mmol/L (98-107); Cholesterol 224 mg/dL (140-199); Estimated Glomerular Filt Rate > 60 mL/min (>60); Glucose 122 mg/dL (70-99); HDL Cholesterol 45 mg/dL (40-60); HEMOLYSIS < 15 (0-50); LDL Cholesterol Calculated 143 mg/dL (<100); Potassium 4.5 mmol/L (3.4-5.1); Sodium 138 mmol/L (137-145); Triglycerides 180 mg/dL (35-150)
== END ==
PROVIDERS: PCP Nurse Practitioner Family; Referring Provider Nurse Practitioner Family; Visit Provider Internal Medicine
DX: E78.5 Hyperlipidemia, unspecified (principal); E11.69 Type 2 diabetes mellitus with other specified complication; Z91.89 Other specified personal risk factors, not elsewhere classified; E78.2 Mixed hyperlipidemia; I10 Essential (primary) hypertension
CPT/HCPCS: 36415; 80048; 80061; 83036; 85025

== ENCOUNTER → 2025-03-14 11:28 | Outpatient (CLI) | payer MEDICARE, SELFPAY ==
--- NOTE | 2025-03-14 11:29 | DI.RAD.S_ITS ---
PROCEDURE: XR DEXA AXIAL SKELETON INDICATIONS: asymptomatic age related postmenopausal state COMPARISON: [facility], , XR DEXA AXIAL SKELETON, 11/03/2022, 10:44. [facility], , DEXA AXIAL SKELETON, 12/23/2016, 15:01. FINDINGS: Lumbar Spine: Bone mineral density 1.01 g/cm2, T score -0.3, normal. Left Femoral Neck: Bone mineral density is 0.698 g/cm2, T score -1.4. Left Hip: Bone mineral density is 0.893 g/cm2, T score -0.4, osteopenia. Fracture Risk Calculation (when applicable): 10-year fracture risk of a major osteoporotic fracture 9.2 percent and of a hip fracture 1.4 percent. (T score greater or equal to -1.0 to: NORMAL) (T score from -1.1 to -2.4: OSTEOPENIA) (T score less than or equal to -2.5: OSTEOPOROSIS) IMPRESSION: Osteopenia Follow-up guidelines as follows: Osteoporosis: Consider a repeat DEXA and Vertebral Fracture Assessment (VFA) exam in 2 years or sooner if medically necessary, to reassess this patient's status. Osteopenia: Consider a repeat DEXA in 2-3 years to reassess this patient's status, or if there is a new clinical indication. Normal: Consider a repeat DEXA in 5 years or sooner, or if there is a new clinical indication. All treatment decisions require clinical judgment and consideration of individual patient factors, including patient preferences, comorbidities, previous drug use, risk factors not captured in the FRAX model (e.g., frailty, falls, vitamin D deficiency, increased bone turnover, interval significant decline in bone density ) and possible under- or over-estimation of fracture risk by FRAX. In addition, the NOF Guide recommends that FDA-approved medical therapies be considered in postmenopausal women and men age >= 50 years with a: * Hip or vertebral (clinical or morphometric) fracture * T-score of <=-2.5 at the spine or hip * Ten-year fracture probability by FRAX of >= 3% for hip fracture or >=20% for major osteoporotic fracture. Dictated by: Nahum Varela M.D. on 03/14/2025 at 16:51 Approved by: Nahum Varela M.D. on 03/14/2025 at 16:52
--- NOTE | 2025-03-14 11:29 | DI.MG.S_ITS ---
MM screening mammo BI: 03/14/2025. BI-RADS: 1 CLINICAL: 74-year old female for bilateral screening mammogram. Tyrer-Cuzick lifetime risk of 4.6%. No personal or first-degree family history of breast cancer. Current reported family history of breast cancer: paternal grandmother and paternal aunt. PRIOR EXAMS 02/03/2024, 11/03/2022, 08/27/2021, 02/19/2020. MAMMOGRAPHY TECHNIQUE: 2D and 3D (tomosynthesis) digital mammographic views obtained, with additional images as needed for full coverage. Current study was also evaluated with a Computer Aided Detection (CAD) system. DENSITY A. The breasts are almost entirely fatty. MAMMOGRAPHY FINDINGS Bilateral: No suspicious mass, asymmetry, microcalcification, or other abnormality seen. IMPRESSION: * No evidence of malignancy. RECOMMENDATIONS Bilateral * Annual screening mammography. OVERALL ASSESSMENT CATEGORY BI-RADS-1: Negative. The [employer] recommends annual screening mammography beginning at age 40 for women with average risk of breast cancer. ELECTRONICALLY SIGNED: Pham Gonzalez M.D. on 03/14/2025 at 05:18:29 PM PT Interpreting Station ID: [id number]
== END ==
LOC: MAMMO 11:29
PROVIDERS: PCP Nurse Practitioner Family; Referring Provider Nurse Practitioner Family; Visit Provider Nurse Practitioner Family
DX: Z12.31 Encounter for screening mammogram for malignant neoplasm of breast (principal); R92.313 Mammographic fatty tissue density, bilateral breasts; Z80.3 Family history of malignant neoplasm of breast; M85.852 Other specified disorders of bone density and structure, left thigh; Z78.0 Asymptomatic menopausal state
CPT/HCPCS: 77063; 77067; 77080

== ENCOUNTER → 2025-05-28 11:37 | Outpatient (CLI) | payer MEDICARE, SELFPAY ==
[2025-05-28 12:49] LABS: Hemoglobin A1C% w Est Avg Glu 5.6 % (4.0-6.0)
[2025-05-28 12:56] LABS: Alanine Aminotransferase 24 IU/L (<35); Albumin 4.3 g/dL (3.5-5.0); Albumin Globulin Ratio 1.4 (1.0-2.8); Alkaline Phosphatase 75 U/L (38-126); Blood Urea Nitrogen 22 mg/dL (7-17); Calcium 9.5 mg/dL (8.4-10.2); Carbon Dioxide 27 mmol/L (22-32); Chloride 105 mmol/L (98-107); Cholesterol 202 mg/dL (140-199); Estimated Glomerular Filt Rate > 60 mL/min (>60); Globulin 3.1 g/dL (1.7-4.1); Glucose 119 mg/dL (70-99); HDL Cholesterol 48 mg/dL (40-60); HEMOLYSIS < 15 (0-50); Potassium 4.4 mmol/L (3.4-5.1); Sodium 140 mmol/L (137-145); Total Protein 7.4 g/dL (6.3-8.2); Triglycerides 197 mg/dL (35-150)
== END ==
PROVIDERS: PCP Nurse Practitioner Family; Referring Provider Nurse Practitioner Family; Visit Provider Nurse Practitioner Family
DX: E11.69 Type 2 diabetes mellitus with other specified complication (principal); E78.2 Mixed hyperlipidemia; E11.9 Type 2 diabetes mellitus without complications; I10 Essential (primary) hypertension
CPT/HCPCS: 36415; 80053; 80061; 83036